=== PATIENT | female | born 1930 | race Caucasian/White ===

== ENCOUNTER 2021-06-28 10:44 | Emergency (ER) | payer MEDICARE, BC ==
[2021-06-28] MEDS ORDERED: Ondansetron 4 MG/2 ML SDV IVPUSH ONE (11:25)
[2021-06-28] MEDS ORDERED: HYDROmorphone 0.5 MG/0.5 ML Syringe IVPUSH ONE (11:25)
[2021-06-28 15:18] VITALS: BP 143/57; PULSE 86
== END 2021-06-28 14:11 | disposition home or self-care (01) ==
LOC: JD.ED 10:44
DX: S32.592A Other specified fracture of left pubis, initial encounter for closed fracture (principal); S51.012A Laceration without foreign body of left elbow, initial encounter; I10 Essential (primary) hypertension; W18.30XA Fall on same level, unspecified, initial encounter
CPT/HCPCS: 36415; 73030; 73080; 73502; 80053; 85025; 96374; 96375; 99283; J1170; J2405; 99284